=== PATIENT | female | born 1970 | race Caucasian/White ===

== ENCOUNTER 2019-10-10 11:59 | Outpatient (CLI) | payer BC ==
--- NOTE | 2019-10-10 15:48 | RAD ---
LEFT KNEE FOUR VIEW: 10/10/19 HISTORY: Pain. COMPARISON: None. FINDINGS: On the oblique radiograph and on the lateral radiograph there appears to be displacement of a compone nt of the plastic spacer. Osteotomy change of the medial tibial metaphysis. There is a headless screw through the medial tibial metaphysis with a fracture through the mid portio n of the screw. IMPRESSION: 1. Semiopaque triangular shaped radiopacity in the posteromedial joint space concern for possibl e plastic spacer displacement. 2. Fracture of the headless screw through the medial tibial metaphysis through the osteotomy sit e. Orthopedic consultation is advised. POS: HOME
== END 2019-10-10 12:00 | disposition home or self-care (01) ==
LOC: BICRAD 11:59
PROVIDERS: ATTEND Specialist
DX: M25.462 Effusion, left knee (principal); Z98.890 Other specified postprocedural states